=== PATIENT | female | born 1960 | race Caucasian/White ===

== ENCOUNTER → 2024-12-23 | Outpatient (CLI) | payer MEDICARE, BC, SELFPAY ==
--- NOTE | 2024-12-23 17:05 | XR_ITS ---
Examination:Right hip AP, lateral, AP pelvis 3 views Technique: Hip AP lateral, AP pelvis, 3 views Exam date and time:December 23, 2024 1711 hours INDICATIONS: Right hip pain beginning one month ago FINDINGS: No right hip fracture or dislocation Mild narrowing hip joints Degenerative bones of the pelvis intact IMPRESSION: Mild narrowing hip joints.
--- NOTE | 2024-12-23 17:05 | XR_ITS ---
Examination: Lumbar spine, 5 views Technique: Lumbar spine AP, lateral, coned lateral lower lumbar spine, bilateral obliques 5 views Exam date and time: December 23, 2024 1711 hours INDICATIONS: Low back pain beginning one month ago FINDINGS: Lumbar levoscoliosis 15 degrees Moderate diffuse facet arthropathy. No lumbar fracture [id number] diffuse lumbar degenerative disc disease most prominent at L2-L3 Prominent lumbar spondylosis IMPRESSION: [id number] lumbar degenerative disc disease
== END | disposition home or self-care (01) ==
PROVIDERS: PCP Nurse Practitioner Family; Referring Provider Nurse Practitioner Family; Visit Provider Nurse Practitioner Family
DX: M25.851 Other specified joint disorders, right hip (principal); M51.360 Other intervertebral disc degeneration, lumbar region with discogenic back pain only
CPT/HCPCS: 72110; 73502